=== PATIENT | female | born 1930 | race Caucasian/White ===

== ENCOUNTER 2021-01-15 01:42 | Inpatient (IN) | payer MEDICARE, BC ==
[2021-01-15] MEDS ORDERED: MORPHINE SULFATE 4 MG/ML SYRINGE IV PRN (02:44)
[2021-01-15] MEDS ORDERED: NALOXONE 0.4 MG/ML 1 ML VIAL IV PRN (02:44)
--- NOTE | 2021-01-15 03:20 | ED ---
Lower Extremity Injury HPI - General Chief Complaint: Extremity Injury, Lower Stated Complaint: Right ankle fracture Time Seen by Provider: 01/15/21 02:13 Source: patient, EMS Mode of arrival: EMS Limitations: no limitations - History of Present Illness Initial Comments: This patient is an 89-year-old woman who arrives here as a transfer from [facility]. The patient had gone there after she had a fall tonight. Patient did have x-rays that reveal right ankle fracture. The patient denies other injury. MD Complaint: ankle injury -: hour(s) Injury: Ankle: Right Type of Injury: blunt Place: home Severity: mild Improves With: nothing Worsens With: weight bearing Context: fall Associated Symptoms: swelling, unable to bear weight - Related Data Allergies Allergy/AdvReac Type Severity Reaction Status Date / Time codeine Allergy Unknown Verified 01/15/21 03:40 iodine Allergy Unknown Verified 01/15/21 03:41 Sulfa (Sulfonamide Allergy Unknown Verified 01/15/21 03:40 Antibiotics) sulfamethoxazole Allergy Unknown Verified 01/15/21 03:41 [From Bactrim] trimethoprim [From Bactrim] Allergy Unknown Verified 01/15/21 03:41 Review of Systems ROS Statement: Those systems with pertinent positive or pertinent negative responses have been documented in the HPI. ROS Other: All systems not noted in ROS Statement are negative. Constitutional: Denies: fever, weakness Eyes: Denies: vision change Respiratory: Denies: cough, dyspnea Cardiovascular: Denies: chest pain, syncope Gastrointestinal: Denies: abdominal pain, nausea, vomiting Genitourinary: Denies: dysuria Musculoskeletal: Reports: as per HPI, arthralgia. Denies: back pain Skin: Denies: rash Neurological: Denies: headache, weakness, numbness Past Medical History Past Medical History: Dementia, GERD/Reflux, Memory Impairment History of Any Multi-Drug Resistant Organisms: None Reported Additional Past Surgical History / Comment(s): cleft palate, nasal surgery Past Psychological History: Depression Smoking Status: Never smoker Past Alcohol Use History: None Reported Past Drug Use History: None Reported General Exam Limitations: no limitations General appearance: alert, in no apparent distress Head exam: Present: atraumatic, normocephalic Eye exam: Present: normal appearance. Absent: scleral icterus, conjunctival injection ENT exam: Present: normal oropharynx Neck exam: Present: normal inspection Respiratory exam: Present: normal lung sounds bilaterally. Absent: respiratory distress, wheezes, rales, rhonchi, stridor Cardiovascular Exam: Present: regular rate, normal rhythm, normal heart sounds. Absent: systolic murmur, diastolic murmur, rubs, gallop GI/Abdominal exam: Present: soft. Absent: distended, tenderness, guarding, rebound Extremities exam: Present: tenderness, normal capillary refill, joint swelling. Absent: full ROM, pedal edema, calf tenderness Back exam: Present: normal inspection. Absent: CVA tenderness (R), CVA tenderness (L) Neurological exam: Present: alert. Absent: motor sensory deficit Skin exam: Present: warm, dry, intact, normal color. Absent: rash Course Vital Signs 01/15/21 01/15/21 01:44 01:54 Temperature 98 F Pulse Rate 71 Respiratory 16 Rate Blood Pressure 169/80 O2 Sat by Pulse 97 Oximetry Procedures - Orthopedic Splinting/Casting Injury #1 Side: right Lower Extremity Injury Location: ankle Lower Extremity Immobilizer: posterior splint Medical Decision Making - Lab Data Result diagrams: 01/15/21 03:05 Lab Results 01/15/21 01/15/21 Range/Units 03:05 03:05 WBC 8.5 (3.8-10.6) k/uL RBC 4.52 (3.80-5.40) m/uL Hgb 14.0 (11.4-16.0) gm/dL Hct 42.0 (34.0-46.0) % MCV 93.0 (80.0-100.0) fL MCH 30.9 (25.0-35.0) pg MCHC 33.3 (31.0-37.0) g/dL RDW 13.3 (11.5-15.5) % Plt Count 196 (150-450) k/uL MPV 7.0 Neutrophils % 64 % Lymphocytes % 28 % Monocytes % 5 % Eosinophils % 2 % Basophils % 0 % Neutrophils # 5.5 (1.3-7.7) k/uL Lymphocytes # 2.4 (1.0-4.8) k/uL Monocytes # 0.4 (0-1.0) k/uL Eosinophils # 0.1 (0-0.7) k/uL Basophils # 0.0 (0-0.2) k/uL Urine Color Colorless Urine Appearance Clear (Clear) Urine pH 7.0 (5.0-8.0) Ur Specific [place] 1.004 (1.001-1.035) Urine Protein Negative (Negative) Urine Glucose (UA) Negative (Negative) Urine Ketones Negative (Negative) Urine Blood Negative (Negative) Urine Nitrite Negative (Negative) Urine Bilirubin Negative (Negative) Urine Urobilinogen <2.0 (<2.0) mg/dL Ur Leukocyte Esterase Trace H (Negative) Urine RBC <1 (0-5) /hpf Urine WBC 5 (0-5) /hpf Ur Squamous Epith Cells <1 (0-4) /hpf Urine Bacteria Rare H (None) /hpf - EKG Data -: EKG Interpreted by Ne EKG shows normal: sinus rhythm, axis (Normal), intervals (SD interval is 240 ms, consistent with first-degree AV block. QRS duration 88 ms, QTC 435 ms these are both normal.), QRS complexes (Normal), ST-T waves (Normal) Rate: normal (Rate 67 bpm) Disposition Clinical Impression: Fracture of ankle Disposition: HOME SELF-CARE Condition: Good Is patient prescribed a controlled substance at d/c from ED?: No Referrals: Justin Rodriguez MD [Primary Care Provider] - 1-2 days
[2021-01-15 03:44] LABS: Basophils % (A) 0 %; Eosinophils # (A) 0.1 k/uL (0-0.7); Eosinophils % (A) 2 %; Lymphocytes # (A) 2.4 k/uL (1.0-4.8); Lymphocytes % (A) 28 %; MCH 30.9 pg (25.0-35.0); MCHC 33.3 g/dL (31.0-37.0); Monocytes # (A) 0.4 k/uL (0-1.0); Monocytes % (A) 5 %; Neutrophils # (A) 5.5 k/uL (1.3-7.7); Neutrophils % (A) 64 %; Platelet Count 196 k/uL (150-450); RBC 4.52 m/uL (3.80-5.40); RDW 13.3 % (11.5-15.5); WBC 8.5 k/uL (3.8-10.6)
[2021-01-15 03:48] LABS: Appearance,Urine Clear (Clear); Bacteria,Urine Rare /hpf; Bilirubin,Urine Negative (Negative); Blood,Urine Negative (Negative); Color,Urine Colorless; Glucose,Urine (UA) Negative (Negative); Ketones,Urine Negative (Negative); Leukocyte Esterase,Urine Trace (Negative); Nitrite,Urine Negative (Negative); Protein,Urine Negative (Negative); RBC,Urine <1 /hpf (0-5); Specific Gravity,Urine 1.004 (1.001-1.035); Squamous Epithelial Cell,Urine <1 /hpf (0-4); Urobilinogen,Urine <2.0 mg/dL (<2.0); WBC,Urine 5 /hpf (0-5)
[2021-01-15 04:01] LABS: Partial Thromboplastin Time 24.7 sec (22.0-30.0); Prothrombin Time 10.9 sec (9.0-12.0)
[2021-01-15 04:11] LABS: African American GFR (CKD) 80 (>60 ml/min/1.73 sqM); Alcohol <10 mg/dL; Anion Gap 7 mmol/L; Blood Urea Nitrogen 15 mg/dL (7-17); Calcium 9.7 mg/dL (8.4-10.2); Carbon Dioxide 28 mmol/L (22-30); Chloride 105 mmol/L (98-107); Glucose 97 mg/dL (74-99); Non-African American GFR(CKD) 69 (>60 ml/min/1.73 sqM); Potassium 4.2 mmol/L (3.5-5.1); Sodium 140 mmol/L (137-145)
[2021-01-15] MEDS: SODIUM CHLORIDE 0.9% 1,000 ML IV SCH ×2 (06:32→13:54)
[2021-01-15] MEDS: HYDROmorphone 0.5 MG/0.5 ML SYRINGE IVP PRN ×2 (07:59→20:14)
--- NOTE | 2021-01-15 10:38 | P.HPOR ---
History of Present Illness H&P Date: 01/15/21 This is an 89-year-old female who is admitted for right ankle fracture. Patient states that she fell when she was taking her cat a walk on 01/14/2021. Patient was evaluated at [facility] and transferred to [facility] for further management. X-rays reveal bimalleolar fracture of the right ankle. Patient states that she lives alone in an apartment. Patient denies any fever/chills, numbness, weakness or tingling. Patient's past medical history is significant for dementia, GERD and memory impairment. Review of Systems See HPI. Past Medical History Past Medical History: Dementia, GERD/Reflux, Memory Impairment History of Any Multi-Drug Resistant Organisms: None Reported Additional Past Surgical History / Comment(s): cleft palate, nasal surgery Past Psychological History: Depression Smoking Status: Never smoker Past Alcohol Use History: None Reported Past Drug Use History: None Reported Medications and Allergies Home Medications Medication Instructions Recorded Confirmed Type Cetirizine HCl [Zyrtec] 10 mg PO DAILY 01/15/21 01/15/21 History Cholecalciferol [Vitamin D3 (25 25 mcg PO DAILY 01/15/21 01/15/21 History Mcg = 1000 Iu)] Citalopram Hydrobromide [CeleXA] 10 mg PO DAILY 01/15/21 01/15/21 History Levothyroxine Sodium [Synthroid] 25 mcg PO DAILY 01/15/21 01/15/21 History Allergies Allergy/AdvReac Type Severity Reaction Status Date / Time codeine Allergy Unknown Verified 01/15/21 09:45 iodine Allergy Unknown Verified 01/15/21 09:45 Sulfa (Sulfonamide Allergy Unknown Verified 01/15/21 09:45 Antibiotics) sulfamethoxazole Allergy Unknown Verified 01/15/21 09:45 [From Bactrim] trimethoprim [From Bactrim] Allergy Unknown Verified 01/15/21 09:45 Physical Examination On exam patient is resting comfortably in bed in no acute distress. Patient is alert. Splint is clean, dry and intact to the right lower extremity. The right lower extremity is warm and well-perfused. Capillary refill is normal at less than 2 seconds. Patient is able to wiggle the toes of the right foot. Sensation intact. Neurovascular status and circulatory status are intact. Exam of bilateral upper extremities and the left lower extremity are within normal limits. Head is normocephalic and atraumatic. Results X-rays of the right ankle reveal bimalleolar fracture. - Labs Labs: Abnormal Lab Results - Last 24 Hours (Table) 01/15/21 Range/Units 03:05 Ur Leukocyte Esterase Trace H (Negative) Urine Bacteria Rare H (None) /hpf H & H 01/15/21 Range/Units 03:05 Hgb 14.0 (11.4-16.0) gm/dL Hct 42.0 (34.0-46.0) % Coagulation 01/15/21 Range/Units 03:05 INR 1.0 (<1.2) Result Diagrams: 01/15/21 03:05 01/15/21 03:05 Assessment and Plan (1) Fall Current Visit: Yes Status: Acute Code(s): W19.XXXA - UNSPECIFIED FALL, INITIAL ENCOUNTER SNOMED Code(s): 9944594 (2) Ankle fracture, right Current Visit: Yes Status: Acute Code(s): S82.891A - OTH FRACTURE OF RIGHT LOWER LEG, INIT FOR CLOS FX SNOMED Code(s): 52836883 (3) Fracture of ankle Current Visit: Yes Status: Acute Code(s): S82.899A - OTH FRACTURE OF UNSP LOWER LEG, INIT FOR CLOS FX SNOMED Code(s): 76981302 Plan: 1. Continue pain control. 2. Maintain splint to right lower extremity. Nonweightbearing to the right lower extremity. 3. Patient is to be NPO after midnight. 4. Appreciate input from medicine. 5. Planning for ORIF of the right ankle on 01/16/2021 pending medical clearance and patient consent.
--- NOTE | 2021-01-15 11:12 | P.CONS ---
History of Present Illness - Reason for Consult Consult date: 01/15/21 Past Medical History Past Medical History: Dementia, GERD/Reflux, Memory Impairment History of Any Multi-Drug Resistant Organisms: None Reported Additional Past Surgical History / Comment(s): cleft palate, nasal surgery Past Psychological History: Depression Smoking Status: Never smoker Past Alcohol Use History: None Reported Past Drug Use History: None Reported Medications and Allergies Home Medications Medication Instructions Recorded Confirmed Type Cetirizine HCl [Zyrtec] 10 mg PO DAILY 01/15/21 01/15/21 History Cholecalciferol [Vitamin D3 (25 25 mcg PO DAILY 01/15/21 01/15/21 History Mcg = 1000 Iu)] Citalopram Hydrobromide [CeleXA] 10 mg PO DAILY 01/15/21 01/15/21 History Levothyroxine Sodium [Synthroid] 25 mcg PO DAILY 01/15/21 01/15/21 History Allergies Allergy/AdvReac Type Severity Reaction Status Date / Time codeine Allergy Unknown Verified 01/15/21 09:45 iodine Allergy Unknown Verified 01/15/21 09:45 Sulfa (Sulfonamide Allergy Unknown Verified 01/15/21 09:45 Antibiotics) sulfamethoxazole Allergy Unknown Verified 01/15/21 09:45 [From Bactrim] trimethoprim [From Bactrim] Allergy Unknown Verified 01/15/21 09:45 Physical Exam Vitals: Vital Signs Temp Pulse Pulse Resp BP BP Pulse Ox 01/15/21 07:00 98.1 F 65 16 144/77 96 01/15/21 04:41 98.3 F 66 18 140/73 95 01/15/21 04:24 79 16 192/82 98 01/15/21 01:54 98 F 01/15/21 01:44 71 16 169/80 97 Intake and Output 01/14/21 01/15/21 01/15/21 22:59 06:59 14:59 Output Total 300 Balance -300 Output: Urine 300 Other: # Voids 1 1 Weight 79.379 kg Results CBC & Chem 7: 01/15/21 03:05 01/15/21 03:05 Labs: Abnormal Lab Results - Last 24 Hours (Table) 01/15/21 Range/Units 03:05 Ur Leukocyte Esterase Trace H (Negative) Urine Bacteria Rare H (None) /hpf
[2021-01-15] MEDS ORDERED: LEVOTHYROXINE 25 MCG TAB PO SCH (11:15)
[2021-01-15] MEDS: CITALOPRAM HYDROBROMIDE 10 MG TAB PO SCH (11:44)
[2021-01-15] MEDS: CHOLECALCIFEROL 25 MCG (1000 IU) TABLET PO SCH (11:44)
[2021-01-15] MEDS: FAMOTIDINE 20 MG TAB PO SCH ×2 (11:44→20:14)
[2021-01-15] MEDS: ENOXAPARIN 40 MG/0.4 ML SYRINGE SQ SCH (11:44)
--- NOTE | 2021-01-15 13:58 | P.CONS ---
History of Present Illness - Reason for Consult Consult date: 01/15/21 Medical management Requesting physician: Tomás Paredes - Chief Complaint Right ankle fracture - History of Present Illness Consultation: This is a pleasant 89-year-old patient, follows with . Chronic stable medical conditions include mild depression, mild dementia, GERD, chronic constipation and osteoarthritis of the lower back. Patient is walking or cat in his stroller lost her balance and subsequently injured her right ankle. She initially presented to [facility]. From that she was transferred here. Patient has a right ankle fracture. Patient is fairly active for age. No chest pain or shortness of breath. Denies any cardiac history. Right ankle has an Chi wrap. Plan is for surgery tomorrow. Review of systems: GEN.: None EYES: None HEENT: None NECK: None RESPIRATORY: None CARDIOVASCULAR: None GASTROINTESTINAL: Constipation GENITOURINARY: None MUSCULOSKELETAL: Joint pains lower back, right ankle LYMPHATICS: None HEMATOLOGICAL: None PSYCHIATRY: Slightly forgetful NEUROLOGICAL: None Past medical history to include: Dementia, GERD, depression, Social history: Lives alone. No history of smoking or alcohol Family history: Reviewed, noncontributory to presentation Physical examination: VITAL SIGNS: 98.1, 65, 16, 1 44 x 77, 96% room air GENERAL:. BMI 32, laying in bed, comfortable. EYES: Pupils equal. Conjunctiva normal. HEENT: External appearance of nose and ears normal, oral cavity grossly normal. NECK: JVD not raised; masses not palpable. HEART: First and second heart sounds are normal; no edema. LUNGS: Respiratory rate normal; clear to auscultation. ABDOMEN: Soft, nontender, liver spleen not palpable, no masses palpable. PSYCH: [Patient is able to hold a simple conversation MUSCULAR skeletal: Chi wrap over the right lower external edema. Evidence of OA especially in the hands l. NEUROLOGICAL: Cranial nerves grossly intact; no facial asymmetry, power and sensation grossly intact. LYMPHATICS: No lymph nodes palpable in the axilla and neck INVESTIGATIONS, reviewed in the clinical context: WBC 8.5 hemoglobin 14 platelets 196 potassium 4.2 creatinine 0.77 Troponin I less than 0.012 UA positive for leukoesterase trace, urine bacteria rare Serum alcohol less than 10 Coronavirus [PCR]-not detected EKG tracing personally reviewed by me-normal sinus rhythm first degree AV block Assessment and plan: -Right ankle fracture secondary to mechanical fall. Currently in Chi wrap. Due for surgery tomorrow. 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 Denies any cardiac or per recent symptoms. Has a somewhat limited exercise tolerance. Patient's surgery is relatively bloodless. That makes the patient and to mild to moderate risk from a cardiovascular standpoint. Patient otherwise medically stable with no cardiac medications to surgery. Care was discussed with the patient. Questions answered. Home medications resumed. Lovenox added. We'll get a portable chest x-ray. Thank you Dr. Paredes Past Medical History Past Medical History: Dementia, GERD/Reflux, Memory Impairment History of Any Multi-Drug Resistant Organisms: None Reported Additional Past Surgical History / Comment(s): cleft palate, nasal surgery Past Psychological History: Depression Smoking Status: Never smoker Past Alcohol Use History: None Reported Past Drug Use History: None Reported Medications and Allergies Home Medications Medication Instructions Recorded Confirmed Type Cetirizine HCl [Zyrtec] 10 mg PO DAILY 01/15/21 01/15/21 History Cholecalciferol [Vitamin D3 (25 25 mcg PO DAILY 01/15/21 01/15/21 History Mcg = 1000 Iu)] Citalopram Hydrobromide [CeleXA] 10 mg PO DAILY 01/15/21 01/15/21 History Levothyroxine Sodium [Synthroid] 25 mcg PO DAILY 01/15/21 01/15/21 History Allergies Allergy/AdvReac Type Severity Reaction Status Date / Time codeine Allergy Unknown Verified 01/15/21 09:45 iodine Allergy Unknown Verified 01/15/21 09:45 Sulfa (Sulfonamide Allergy Unknown Verified 01/15/21 09:45 Antibiotics) sulfamethoxazole Allergy Unknown Verified 01/15/21 09:45 [From Bactrim] trimethoprim [From Bactrim] Allergy Unknown Verified 01/15/21 09:45 Physical Exam Vitals: Vital Signs Temp Pulse Pulse Resp BP BP Pulse Ox 01/15/21 07:00 98.1 F 65 16 144/77 96 01/15/21 04:41 98.3 F 66 18 140/73 95 01/15/21 04:24 79 16 192/82 98 01/15/21 01:54 98 F 01/15/21 01:44 71 16 169/80 97 Intake and Output 01/14/21 01/15/21 01/15/21 22:59 06:59 14:59 Output Total 300 Balance -300 Output: Urine 300 Other: # Voids 1 1 Weight 79.379 kg Results CBC & Chem 7: 01/15/21 03:05 01/15/21 03:05 Labs: Abnormal Lab Results - Last 24 Hours (Table) 01/15/21 Range/Units 03:05 Ur Leukocyte Esterase Trace H (Negative) Urine Bacteria Rare H (None) /hpf
[2021-01-15] MEDS: LEVOTHYROXINE 25 MCG TAB PO SCH (20:14)
[2021-01-15] MEDS: ONDANSETRON 4 MG/2 ML VIAL IVP PRN (21:41)
[2021-01-16] MEDS: SODIUM CHLORIDE 0.9% 1,000 ML IV SCH ×4 (00:29→22:00)
[2021-01-16] MEDS: ENOXAPARIN 40 MG/0.4 ML SYRINGE SQ SCH (08:35)
[2021-01-16] MEDS: CITALOPRAM HYDROBROMIDE 10 MG TAB PO SCH (08:37)
[2021-01-16] MEDS: FAMOTIDINE 20 MG TAB PO SCH ×2 (08:37→21:50)
[2021-01-16] MEDS: CHOLECALCIFEROL 25 MCG (1000 IU) TABLET PO SCH (08:37)
[2021-01-16] MEDS ORDERED: IV FLUID CONTINUATION 700 ML IV ONE (16:03)
[2021-01-16] MEDS ORDERED: LIDOCAINE 2% (PF) 20 MG/ML 5 ML VIAL ONE (16:06)
[2021-01-16] MEDS ORDERED: DEXAMETHASONE SOD PHOSPHATE 4 MG/ML 1 ML VIAL IV ONE (16:32)
[2021-01-16] MEDS ORDERED: ONDANSETRON 4 MG/2 ML VIAL IVP ONE (16:32)
[2021-01-16] MEDS ORDERED: ROPIVACAINE 5 MG/ML 30 ML VIAL ONE (17:36)
[2021-01-16] MEDS ORDERED: KETAMINE 10 MG/ML 20 ML VIAL ONE (17:36)
[2021-01-16] MEDS ORDERED: PROPOFOL 10 MG/ML 20 ML VIAL IV ONE (17:36)
[2021-01-16] MEDS ORDERED: HYDROcodone/APAP 5-325MG 1 EACH TAB PO PRN ×2 (17:46)
[2021-01-16] MEDS ORDERED: HYDROmorphone 0.2 MG/1 ML SYRINGE IVP PRN (17:46)
[2021-01-16] MEDS ORDERED: HYDROmorphone 0.5 MG/0.5 ML SYRINGE IVP PRN ×2 (17:46)
[2021-01-16] MEDS ORDERED: LACTATED RINGERS 1,000 ML IV ONE (18:00)
--- NOTE | 2021-01-16 18:06 | P.ANPRN ---
Procedure Note - Anesthesia - Nerve Block Performed Right Popliteal Single Time Out Performed: Yes Date of Procedure: 01/16/21 Procedure Start Time: : Procedure Stop Time: :23 Location of Patient: PreOp Indication: Acute Post-Operative Pain, Dx/Pain Location, Requested by Surgeon Specifically requested for management of pain by : Tomás Paredes Sedation Type: Awake Preparation: Sterile Prep, Sterile Dressing Position: Left Lateral Catheter: None Needle Types: Pajunk Needle Gauge: 21 Ultrasound used to visualize needle placement: Yes Ultrasound used to observe medication spread: Yes Injectate: 0.5% Ropivacaine (see comment for volume) Blood Aspirated: No Pain Paresthesia on Injection Noted: No Resistance on Injection: Normal Image Stored and Saved: Yes Events: Uneventful and Well Tolerated (20cc 0.5% Ropivacaine)
--- NOTE | 2021-01-16 18:08 | P.ANPRN ---
Procedure Note - Anesthesia - Nerve Block Performed Right Adductor Canal Single Time Out Performed: Yes Date of Procedure: 01/16/21 Procedure Start Time: 16:24 Procedure Stop Time: 16:30 Location of Patient: PreOp Indication: Acute Post-Operative Pain, Dx/Pain Location, Requested by Surgeon Specifically requested for management of pain by : Tomás Paredes Sedation Type: Awake Preparation: Sterile Prep Position: Supine Catheter: None Needle Types: Pajunk Needle Gauge: 21 Ultrasound used to visualize needle placement: Yes Ultrasound used to observe medication spread: Yes Injectate: 0.5% Ropivacaine (see comment for volume) Blood Aspirated: No Pain Paresthesia on Injection Noted: No Resistance on Injection: Normal Image Stored and Saved: Yes Events: Uneventful and Well Tolerated (20 cc 0.5% Ropivacaine)
--- NOTE | 2021-01-16 18:22 | P.OP ---
Date of Procedure: 01/16/21 Preoperative Diagnosis: Bimalleolar fracture right ankle Postoperative Diagnosis: Bimalleolar fracture right ankle Procedure(s) Performed: Open reduction and internal fixation of the right distal fibula and medial malleolus right ankle Implants: Rios and nephew small fragment set Anesthesia: regional Surgeon: Tomás Paredes Pattern Mechanic #1: Brenda Wheeler Estimated Blood Loss (ml): 20 Pathology: none sent Condition: stable Disposition: PACU Indications for Procedure: This is an 89-year-old female that slipped and fell in her apartment at home. She sustained a bimalleolar displaced ankle fracture after discussing the surgi ignacio nonsurgical treatment options with her and her family at length recommended open reduction and fixation of her distal fibula and medial malleolus. Informed consent was obtained. Operative Findings: The operative findings are consistent with a bimalleolar ankle fracture of the right ankle Description of Procedure: The patient was seen and evaluated in the preoperative area. The consent was reviewed and the operative site was marked with a skin marker. A femoral popliteal block was performed by anesthesia department in the preoperative area. Patient was then brought to the operating room and given 2 g of Ancef by the anesthesia department. A sedative anesthetic was then administered by the anesthesia department. Tourniquet was placed on the upper thigh and the lower extremity was then prepped and draped in the usual sterile fashion. A universal timeout was then performed which confirmed the patient's name, surgical site, ALLERGIES, and consent. The lower extremity was then exsanguinated, and the tourniquet inflated to 250 mmHg. A standard lateral incision was then performed over the distal fibula with the skin and subcutaneous tissue sharply incised with the incision centered over the fracture site. Tissues were carefully dissected down to the fracture site. The fracture hematoma was evacuated and the fracture was then reduced with bone reducing clamps. Fluoroscopic x-rays confirmed reduction of the fracture and shinto of the ankle mortise. Next, a one third semitubular plate was pre-bent for the patient's anatomy, and placed on the lateral aspect of the distal fibula. Screws were then were placed both proximally and distally in order to fixate the plate to the distal fibula. After all the screws then placed, final fluoroscopic x-rays confirmed reduction of the fracture, shinto of the ankle mortise, and placement of the plate and screws. Next attention was then directed to the medial malleolus. A guidewire was inserted percutaneusly. Fluoroscopic x-rays confirmed reduction of the fracture and placement of the guidewire. The guidewire were then measured and drilled and a 4.0 cannulated screw was placed over the guidewire. The guidewire were then removed. Final fluoroscopic x-rays confirmed reduction of the fracture and placement of the plates and screws. The tourniquet was then released and hemostasis was obtained. The incision site was then irrigated with antibiotic solution. Wound was then closed with 2-0 Vicryl for the subcutaneous tissue and gabbie for the skin. Sterile dressings were applied, and a well-padded and molded posterior splint was placed. Patient was then transported to the recovery room in stable condition. The licensed investment sales assistant TORSTEN Wilder was required due to the complexity of the surgery and the need for a skilled surgical services manager.
--- NOTE | 2021-01-16 19:25 | XR ---
Limited right ankle Fluoroscopy HISTORY: Pain 30 seconds fluoroscopy time supplied to the referring clinician. 2 intraoperative C-arm images docum ent the procedure. See dictated report from orthopedic surgery.
[2021-01-16] MEDS: ASPIRIN 325 MG TAB PO SCH (21:49)
[2021-01-17] MEDS: LEVOTHYROXINE 25 MCG TAB PO SCH ×2 (02:51→20:17)
[2021-01-17] MEDS: SODIUM CHLORIDE 0.9% 1,000 ML IV SCH ×4 (03:00→20:17)
[2021-01-17] MEDS: ASPIRIN 325 MG TAB PO SCH ×2 (09:30→20:16)
[2021-01-17] MEDS: CITALOPRAM HYDROBROMIDE 10 MG TAB PO SCH (09:30)
[2021-01-17] MEDS: CHOLECALCIFEROL 25 MCG (1000 IU) TABLET PO SCH (09:30)
[2021-01-17] MEDS: ONDANSETRON 4 MG/2 ML VIAL IVP PRN (09:30)
[2021-01-17] MEDS: FAMOTIDINE 20 MG TAB PO SCH ×2 (09:30→20:17)
[2021-01-17] MEDS: ENOXAPARIN 40 MG/0.4 ML SYRINGE SQ SCH (09:38)
--- NOTE | 2021-01-17 13:57 | P.PN ---
Subjective Progress Note Date: 01/17/21 This is an 89-year-old female who is status post ORIF of the right distal fibula and medial malleolus of the right ankle. This is postoperative day #1 and patient is seen and evaluated at bedside today with Dr. Tomás Paredes. Patient states that her pain is well controlled, but she has some numbness over the right foot. Patient states that she hasn't been able to wiggle the toes of the right foot. Otherwise, the patient denies any new complaints today. Objective - Vital Signs Vital signs: Vital Signs Temp 97.6 F 01/17/21 08:04 Pulse 70 01/17/21 08:04 Resp 18 01/17/21 08:04 BP 119/69 01/17/21 08:04 Pulse Ox 95 01/17/21 08:04 Intake & Output 01/16/21 01/17/21 01/17/21 18:59 06:59 18:59 Intake Total 1950 2240 Output Total 320 Balance 1630 2240 Weight 79.379 kg 79.379 kg Intake: IV 1150 100 Intake, IV Titration 800 2140 Amount Lactated Ringers 1,000 ml 640 @ 0 mls/hr IV .[facility] Rx#:[id number] Sodium Chloride 0.9% 1, 800 1400 000 ml @ 100 mls/hr IV . Q10H [facility] Rx#:[id number] ceFAZolin 2 gm In Sodium 100 Chloride 0.9% 50 ml @ 100 mls/hr IVPB Q8H [facility] Rx#: [id number] Output: Urine 300 Estimated Blood Loss 20 Other: Voiding Method Bedside Commode Bedside Commode Diaper Diaper # Voids 1 - Exam On exam patient is resting comfortably in bed in no acute distress. Patient is alert and oriented 3. Splint is clean, dry and intact to the right lower extremity. Right lower extremity is warm and well perfused. Capillary refill is normal at less than 2 seconds. Patient does have some numbness over the toes of the right foot. Sensation intact over the remainder of the lower leg. Neurovascular status and circulatory status are intact. - Labs CBC & Chem 7: 01/15/21 03:05 01/15/21 03:05 Assessment and Plan (1) Fall Current Visit: Yes Status: Acute Code(s): W19.XXXA - UNSPECIFIED FALL, INITIAL ENCOUNTER SNOMED Code(s): 8335940 (2) Ankle fracture, right Current Visit: Yes Status: Acute Code(s): S82.891A - OTH FRACTURE OF RIGHT LOWER LEG, INIT FOR CLOS FX SNOMED Code(s): 39481602 (3) Fracture of ankle Current Visit: Yes Status: Acute Code(s): S82.899A - OTH FRACTURE OF UNSP LOWER LEG, INIT FOR CLOS FX SNOMED Code(s): 05362907 Plan: 1. Continue routine postoperative care and pain control. 2. Maintain splint to right lower extremity. Strictly nonweightbearing to the right lower extremity. 3. Anticoagulation with aspirin. 4. Appreciate input from medicine. 5. It was explained that the numbness she has in the right foot is likely secondary to the nerve blocks she had done before her surgery. Appreciate input from anesthesia. 6. Patient is awaiting rehab placement.
--- NOTE | 2021-01-17 16:34 | P.PN ---
Progress Note - Text Progress Note Date: 01/17/21 Chief Complaint Right ankle fracture Consultation: This is a pleasant 89-year-old patient, follows with . Chronic stable medical conditions include mild depression, mild dementia, GERD, chronic constipation and osteoarthritis of the lower back. Patient is walking or cat in his stroller lost her balance and subsequently injured her right ankle. She initially presented to [facility]. From that she was transferred here. Patient has a right ankle fracture. Patient is fairly active for age. No chest pain or shortness of breath. Denies any cardiac history. January 16 underwent open reduction internal fixation of the right distal fibula and medial malleolus. Today: Sitting up in a recliner. 8 some breakfast. Feeling better. Review of systems: Was done for constitutional, cardiovascular, GI, pulmonary. relevant finding as above Active Medications Hydrocodone Bitart/Acetaminophen (Hydrocodone/Apap 5-325mg 1 Each Tab) 1 each PO Q6HR PRN PRN Reason: Pain Scale 1 to 5 Hydrocodone Bitart/Acetaminophen (Hydrocodone/Apap 5-325mg 1 Each Tab) 2 each PO Q6HR PRN PRN Reason: Pain Scale 6 to 10 Aspirin (Aspirin 325 Mg Tab) 325 mg PO BID [facility] Last Admin: 01/17/21 09:30 Dose: 325 mg Documented by: Cholecalciferol (Cholecalciferol 25 Mcg (1000 Iu) Tablet) 25 mcg PO DAILY [facility] Last Admin: 01/17/21 09:30 Dose: 25 mcg Documented by: Citalopram Hydrobromide (Citalopram Hydrobromide 10 Mg Tab) 10 mg PO DAILY [facility] Last Admin: 01/17/21 09:30 Dose: 10 mg Documented by: Enoxaparin Sodium (Enoxaparin 40 Mg/0.4 Ml Syringe) 40 mg SQ DAILY [facility] Last Admin: 01/17/21 09:38 Dose: 40 mg Documented by: Famotidine (Famotidine 20 Mg Tab) 20 mg PO BID [facility] Last Admin: 01/17/21 09:30 Dose: 20 mg Documented by: Hydromorphone HCl (Hydromorphone 0.5 Mg/0.5 Ml Syringe) 0.5 mg IVP Q3HR PRN PRN Reason: Moderate Pain Last Admin: 01/15/21 20:14 Dose: 0.5 mg Documented by: Hydromorphone HCl (Hydromorphone 0.2 Mg/1 Ml Syringe) 0.2 mg IVP Q3HR PRN PRN Reason: Pain Scale 4 to 6 Hydromorphone HCl (Hydromorphone 0.5 Mg/0.5 Ml Syringe) 0.125 mg IVP Q3HR PRN PRN Reason: Pain Scale 1 to 3 Hydromorphone HCl (Hydromorphone 0.5 Mg/0.5 Ml Syringe) 0.5 mg IVP Q3HR PRN PRN Reason: Pain Scale 7 to 10 Sodium Chloride (Saline 0.9%) 1,000 mls @ 100 mls/hr IV .Q10H [facility] Last Admin: 01/17/21 15:17 Dose: 100 mls/hr Documented by: Sodium Chloride (Saline 0.9%) 1,000 mls @ 70 mls/hr IV .[id number] [facility] Last Admin: 01/17/21 09:30 Dose: 70 mls/hr Documented by: Levothyroxine Sodium (Levothyroxine 25 Mcg Tab) 25 mcg PO HS [facility] Last Admin: 01/17/21 02:51 Dose: Not Given Documented by: Morphine Sulfate (Morphine Sulfate 4 Mg/Ml Syringe) 4 mg IV Q4HR PRN PRN Reason: Severe Pain Naloxone HCl (Naloxone 0.4 Mg/Ml 1 Ml Vial) 0.2 mg IV Q2M PRN PRN Reason: Opioid Reversal Ondansetron HCl (Ondansetron 4 Mg/2 Ml Vial) 4 mg IVP Q8HR PRN PRN Reason: Nausea And Vomiting Last Admin: 01/17/21 09:30 Dose: 4 mg Documented by: Past medical history to include: Dementia, GERD, depression, Social history: Lives alone. No history of smoking or alcohol Family history: Reviewed, noncontributory to presentation Physical examination: VITAL SIGNS: 97.6, 70, 18, 119/69, 95% room air GENERAL:. Sitting up in a recliner, awake EYES: Pupils equal. Conjunctiva normal. HEENT: External appearance of nose and ears normal, oral cavity grossly normal. NECK: JVD not raised; masses not palpable. HEART: First and second heart sounds are normal; no edema. LUNGS: Respiratory rate normal; clear to auscultation. ABDOMEN: Soft, nontender, liver spleen not palpable, no masses palpable. PSYCH: Answering questions MUSCULAR skeletal: Dressing with the [place] support on the right foot Evidence of OA especially in the hands l. INVESTIGATIONS, reviewed in the clinical context: WBC 8.5 hemoglobin 14 platelets 196 potassium 4.2 creatinine 0.77 Troponin I less than 0.012 UA positive for leukoesterase trace, urine bacteria rare Serum alcohol less than 10 Coronavirus [PCR]-not detected EKG tracing personally reviewed by me-normal sinus rhythm first degree AV block Assessment and plan: -Right ankle fracture secondary to mechanical fall.-Followed by [facility] Currently in [place] wrap. 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 Care was discussed with the patient. will be discharged to the inpatient rehab. EFFIE Simon Thank you Dr. Paredes
--- NOTE | 2021-01-17 16:37 | P.PN ---
Progress Note - Text Progress Note Date: 01/16/21 Chief Complaint Right ankle fracture Consultation: This is a pleasant 89-year-old patient, follows with . Chronic stable medical conditions include mild depression, mild dementia, GERD, chronic constipation and osteoarthritis of the lower back. Patient is walking or cat in his stroller lost her balance and subsequently injured her right ankle. She initially presented to [facility]. From that she was transferred here. Patient has a right ankle fracture. Patient is fairly active for age. No chest pain or shortness of breath. Denies any cardiac history. Today: underwent open reduction internal fixation of the right distal fibula and medial malleolus. Postprocedure patient is laying in bed, somewhat delirious. Tired Review of systems: Attempted for constitutional, cardiovascular, GI, pulmonary. relevant finding as above Active Medications Reviewed in today's electronic records Past medical history to include: Dementia, GERD, depression, Social history: Lives alone. No history of smoking or alcohol Family history: Reviewed, noncontributory to presentation Physical examination: VITAL SIGNS: 98.1, 71, 16, 132/82, 35% room air GENERAL:. Laying in bed, lethargic a bit confused EYES: Pupils equal. Conjunctiva normal. HEENT: External appearance of nose and ears normal, oral cavity grossly normal. NECK: JVD not raised; masses not palpable. HEART: First and second heart sounds are normal; no edema. LUNGS: Respiratory rate normal; clear to auscultation. ABDOMEN: Soft, nontender, liver spleen not palpable, no masses palpable. PSYCH: Slightly confused MUSCULAR skeletal: Dressing with the [place] support on the right foot Evidence of OA especially in the hands l. INVESTIGATIONS, reviewed in the clinical context: WBC 8.5 hemoglobin 14 platelets 196 potassium 4.2 creatinine 0.77 Troponin I less than 0.012 UA positive for leukoesterase trace, urine bacteria rare Serum alcohol less than 10 Coronavirus [PCR]-not detected EKG tracing personally reviewed by me-normal sinus rhythm first degree AV block Assessment and plan: -Right ankle fracture secondary to mechanical fall.-Followed by [facility] Currently in [place] wrap. 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 To be careful with pain medications. Thank you Dr. Paredes
[2021-01-18 02:37] VITALS: RESP 18
[2021-01-18] MEDS: CHOLECALCIFEROL 25 MCG (1000 IU) TABLET PO SCH (08:31)
[2021-01-18] MEDS: ASPIRIN 325 MG TAB PO SCH (08:31)
[2021-01-18] MEDS: ENOXAPARIN 40 MG/0.4 ML SYRINGE SQ SCH (08:31)
[2021-01-18] MEDS: FAMOTIDINE 20 MG TAB PO SCH (08:31)
[2021-01-18] MEDS: CITALOPRAM HYDROBROMIDE 10 MG TAB PO SCH (08:31)
[2021-01-18 08:34] VITALS: BP 122/72; PULSE 60; TEMP 97.6
--- NOTE | 2021-01-18 12:05 | P.DS ---
Providers Date of admission: 01/17/21 09:10 Expected date of discharge: 01/18/21 Attending physician: Tomás Paredes Consults: 01/15/21 02:45 Consult Physician Routine Consulting Provider: Mikel Patterson Consult Reason/Comments: medical management Do you want consulting provider notified?: Yes Primary care physician: [facility] Course: This is an 89-year-old female who sustained a right bimalleolar ankle fracture on 01/14/21, she initially presented to [facility], and was subsequently transferred to [facility] emergency department for further management. Patient underwent a right ankle open reduction and internal fixation on 01/16/[address] Tomás Paredes. The procedure was performed without complication or sequelae. The patient is doing fairly well postoperatively. Vital signs and labs are stable on postoperative day #2. Patient was examined bedside today. Patient states she is doing very well, the pain in the right ankle is controlled. She has been working with physical therapy. Patient states the numbness and tingling in her right lower extremity has resolved. She is tolerating her diet well. Patient is voiding freely and has had a bowel movement post-operatively. Patient has no complaints today. She denies chest pain, shortness of breath, nausea, vomiting, fevers, chills. Patient is discharged to rehab in good condition, pending medical clearance. Patient will follow-up with Dr. Tomás Paredes in the office in 2 weeks. Please see med rec for accurate list of discharge medication. Patient Condition at Discharge: Good Plan - Discharge Summary New Discharge Prescriptions: New Aspirin 325 mg PO BID #60 tab HYDROcodone/APAP 5-325MG [[place] 5-325] 1 - 2 tab PO Q6HR PRN #32 tab PRN Reason: Pain Sennosides [Senokot] 2 tab PO DAILY PRN #60 tablet PRN Reason: Constipation Famotidine [Pepcid] 20 mg PO BID tab Continue Cholecalciferol [Vitamin D3 (25 Mcg = 1000 Iu)] 25 mcg PO DAILY Levothyroxine Sodium [Synthroid] 25 mcg PO DAILY Citalopram Hydrobromide [CeleXA] 10 mg PO DAILY Discontinued Cetirizine HCl [Zyrtec] 10 mg PO DAILY Discharge Medication List Cholecalciferol [Vitamin D3 (25 Mcg = 1000 Iu)] 25 mcg PO DAILY 01/15/21 [History] Citalopram Hydrobromide [CeleXA] 10 mg PO DAILY 01/15/21 [History] Levothyroxine Sodium [Synthroid] 25 mcg PO DAILY 01/15/21 [History] Aspirin 325 mg PO BID #60 tab 01/17/21 [Rx] HYDROcodone/APAP 5-325MG [[place] 5-325] 1 - 2 tab PO Q6HR PRN #32 tab 01/17/21 [Rx] Sennosides [Senokot] 2 tab PO DAILY PRN #60 tablet 01/17/21 [Rx] Famotidine [Pepcid] 20 mg PO BID tab 01/18/21 [Rx] Follow up Appointment(s)/Referral(s): [facility] [NON-STAFF] - 1-2 Days Justin Rodriguez MD [Primary Care Provider] - 1-2 days Tomás Paredes DO [Doctor of Osteopathic Medicine] - 2 Weeks Activity/Diet/Wound Care/Special Instructions: Maintain splint right lower extremity. Strictly nonweightbearing to the right lower extremity. Aspirin for anticoagulation. Rest and elevate the right lower extremity. Please follow-up with [facility] and call with any questions or concerns, . Discharge Disposition: TRANSFER TO SNF/ECF
--- NOTE | 2021-01-18 19:32 | P.PN ---
Progress Note - Text Progress Note Date: 01/18/21 Chief Complaint Right ankle fracture Consultation: This is a pleasant 89-year-old patient, follows with . Chronic stable medical conditions include mild depression, mild dementia, GERD, chronic constipation and osteoarthritis of the lower back. Patient is walking or cat in his stroller lost her balance and subsequently injured her right ankle. She initially presented to [facility]. From that she was transferred here. Patient has a right ankle fracture. Patient is fairly active for age. No chest pain or shortness of breath. Denies any cardiac history. January 16 underwent open reduction internal fixation of the right distal fibula and medial malleolus. Today: Laying in bed. Comfortable. Oral intake fair. Feeling well. Pain well controlled. Review of systems: Was done for constitutional, cardiovascular, GI, pulmonary. relevant finding as above Today's medications reviewed in the electronic records Past medical history to include: Dementia, GERD, depression, Social history: Lives alone. No history of smoking or alcohol Family history: Reviewed, noncontributory to presentation Physical examination: VITAL SIGNS: 97.6, 60, 18, 122.72, 93% on room air GENERAL:. Laying in bed, comfortable EYES: Pupils equal. Conjunctiva normal. HEENT: External appearance of nose and ears normal, oral cavity grossly normal. NECK: JVD not raised; masses not palpable. HEART: First and second heart sounds are normal; no edema. LUNGS: Respiratory rate normal; clear to auscultation. ABDOMEN: Soft, nontender, liver spleen not palpable, no masses palpable. PSYCH: Answering simple questions MUSCULAR skeletal: Dressing with [place] support on the right foot Evidence of OA especially in the hands l. INVESTIGATIONS, reviewed in the clinical context: WBC 8.5 hemoglobin 14 platelets 196 potassium 4.2 creatinine 0.77 Troponin I less than 0.012 UA positive for leukoesterase trace, urine bacteria rare Serum alcohol less than 10 Coronavirus [PCR]-not detected EKG tracing personally reviewed by me-normal sinus rhythm first degree AV block Assessment and plan: -Right ankle fracture secondary to mechanical fall.-Followed by [facility] Currently in [place] wrap. 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 Follow-up with PCP Thank you Dr. Paredes
== END 2021-01-18 14:10 | disposition swing bed (61) | DRG 493 ==
LOC: EC 01:42 → SUPCPDRO 01:42 → 6NMEDSUR 02:44 → OBSVTOIN 01-17 09:10
PROVIDERS: ADMIT Orthopaedic Surgery; ATTEND Orthopaedic Surgery
PROC: 0QSJ04Z Reposition Right Fibula with Internal Fixation Device, Open Approach (ICD-10-PCS; principal; 2021-01-16 08:35)
PROC: 0QSG04Z Reposition Right Tibia with Internal Fixation Device, Open Approach (ICD-10-PCS; principal; 2021-01-16 08:35)
DX: S82.841A Displaced bimalleolar fracture of right lower leg, initial encounter for closed fracture (principal); F05 Delirium due to known physiological condition; F02.80 Dementia in other diseases classified elsewhere, unspecified severity, without behavioral disturbance, psychotic disturbance, mood disturbance, and anxiety; G30.1 Alzheimer's disease with late onset; Z20.822 Contact with and (suspected) exposure to COVID-19; E03.9 Hypothyroidism, unspecified; K21.9 Gastro-esophageal reflux disease without esophagitis; F32.9 Major depressive disorder, single episode, unspecified; K59.09 Other constipation; M47.9 Spondylosis, unspecified; Z79.890 Hormone replacement therapy; Z79.899 Other long term (current) drug therapy; Z87.730 Personal history of (corrected) cleft lip and palate; Z60.2 Problems related to living alone; Z88.1 Allergy status to other antibiotic agents; Z88.5 Allergy status to narcotic agent; Z88.2 Allergy status to sulfonamides; Z88.8 Allergy status to other drugs, medicaments and biological substances; W01.0XXA Fall on same level from slipping, tripping and stumbling without subsequent striking against object, initial encounter; Y92.039 Unspecified place in apartment as the place of occurrence of the external cause
CPT/HCPCS: 36415; 64445; 64999; 76942; 80048; 80320; 81001; 84484; 85025; 85610; 85730; 87635; 93005; 99284